=== PATIENT | female | born 1990 | race Caucasian/White ===

== ENCOUNTER → 2018-04-04 | Outpatient (REF) | payer BC | LOC: M LAB REF 16:18 | DX: K50.118 Crohn's disease of large intestine with other complication (principal); D50.9 Iron deficiency anemia, unspecified | CPT/HCPCS: 86140 ==

== ENCOUNTER 2018-05-14 12:15 | Emergency (ER) | payer BC ==
[2018-05-14] MEDS: NS 1,000 ML IV (13:30)
[2018-05-14] MEDS: GASTROGRAFIN SOLUTION 30ML PO ×2 (13:45→14:15)
[2018-05-14 13:52] LABS: BASO % 0.3 % (0.0-1.0); EOS # 0.1 10^3/uL (0.0-0.50); EOS % 0.5 % (0.0-3.0); HEMATOCRIT 38.9 % (36.0-47.0); HEMOGLOBIN 12.8 g/dl (12.0-15.5); IMMATURE GRANULOCYTE % 0.5 % (0-3.0); LYMPH # 1.5 10^3/uL (1.5-6.5); LYMPH % 15.4 % (24.0-44.0); MEAN CORPUSCULAR HEMOGLOBIN 28.3 pg (27.0-33.0); MEAN CORPUSCULAR HGB CONC 32.9 g/dl (32.0-36.5); MEAN CORPUSCULAR VOLUME 85.9 fl (80.0-96.0); MONO # 1.1 10^3/uL (0.0-0.8); MONO % 11.7 % (0.0-5.0); NEUTROPHILS # 6.9 10^3/uL (1.8-7.7); NEUTROPHILS % 71.6 % (36.0-66.0); PLATELET COUNT, AUTOMATED 235 10^3/uL (150-450); RED BLOOD COUNT 4.53 10^6/uL (4.00-5.40); RED CELL DISTRIBUTION WIDTH 12.2 % (11.5-14.5); WHITE BLOOD COUNT 9.6 10^3/uL (4.0-10.0)
[2018-05-14 13:56] LABS: KETONE, URINE AUTO RFX TRACE mg/dL (NEGATIVE); LEUKOCYTE ESTERASE UR AUTO RFX NEGATIVE (NEGATIVE); MUCUS, URINE RFX SMALL (NEGATIVE); NITRITE, URINE AUTO RFX NEGATIVE (NEGATIVE); RBC, URINE AUTO RFX 4 /HPF (0-3); SPECIFIC GRAVITY UR AUTO RFX 1.026 (1.002-1.035); SQUAM EPITHELIAL CELL UR AURFX 6 /HPF (0-6); WBC, URINE AUTO RFX 5 /HPF (0-3)
[2018-05-14 14:27] LABS: ALBUMIN 3.3 GM/DL (3.2-5.2); ALBUMIN/GLOBULIN RATIO 0.85 (1.00-1.93); ALKALINE PHOSPHATASE 51 U/L (45-117); ALT/SGPT 13 U/L (12-78); AMYLASE 36 U/L (25-115); ANION GAP 9 MEQ/L (8-16); AST/SGOT 10 U/L (7-37); BILIRUBIN,DIRECT 0.2 MG/DL (0.0-0.2); BILIRUBIN,TOTAL 0.7 MG/DL (0.2-1.0); BLOOD UREA NITROGEN 10 MG/DL (7-18); CALCIUM LEVEL 8.8 MG/DL (8.5-10.1); CARBON DIOXIDE LEVEL 28 MEQ/L (21-32); CHLORIDE LEVEL 102 MEQ/L (98-107); CREATININE FOR GFR 0.63 MG/DL (0.55-1.30); GLOMERULAR FILTRATION RATE > 60.0 (>60); GLUCOSE, FASTING 83 MG/DL (70-100); LIPASE 87 U/L (73-393); POTASSIUM SERUM 3.5 MEQ/L (3.5-5.1); SODIUM LEVEL 139 MEQ/L (136-145); TOTAL PROTEIN 7.2 GM/DL (6.4-8.2)
[2018-05-14] MEDS ORDERED: ISOVUE-370 76% 100ML VIAL (Q9967) As Ordered (14:58)
[2018-05-14] MEDS: MORPHINE 4 MG/ML 1ML VIAL/SYRINGE (J2270) IV (16:15)
[2018-05-14] MEDS: CIPROFLOXACIN 500 MG TAB PO (17:29)
[2018-05-14] MEDS: metroNIDAZOLE (FLAGYL) 500 MG TAB PO (17:30)
[2018-05-14] MEDS: ACETAMINOPHEN 325 MG TAB PO (17:30)
== END 2018-05-14 17:30 | disposition home or self-care (01) ==
LOC: M ED 12:15
DX: K52.9 Noninfective gastroenteritis and colitis, unspecified (principal); D27.1 Benign neoplasm of left ovary; M54.5 Low back pain; D64.9 Anemia, unspecified; Z98.84 Bariatric surgery status; Z88.8 Allergy status to other drugs, medicaments and biological substances; Z91.018 Allergy to other foods; Z79.899 Other long term (current) drug therapy
CPT/HCPCS: J2270

== ENCOUNTER → 2018-05-16 | Outpatient (REF) | payer BC | LOC: M LAB REF 14:38 | DX: K50.10 Crohn's disease of large intestine without complications (principal); R19.7 Diarrhea, unspecified | CPT/HCPCS: 87493 ==

== ENCOUNTER → 2018-09-03 | Outpatient (REF) | payer BC ==
[~2018-09-03] MED LIST: ALBU17IN2 INH; BIOT10008 PO; CIPR-249 PO; COLA100C5 PO; EPIP0.3I2 SC; FERR1TAB8 PO; FLAG500T PO; HUMI40KI2 SC; IMOD2TAB16 PO; NORCOTAB PO; OMEP20CA3 PO; PERC5TAB12 PO; PRED20TAB PO; VITA10002 PO; VITA100066 PO; VITA50005 PO; VITMTA PO; [UNRECOGNIZED DRUG - OTHER]
[2018-09-03 14:17] LABS: CA 125 7.8 U/ML (<30.2); CA19-9 TUMOR MARKER,CARBOHYDRA 7.7 U/ML (<35.0)
== END ==
LOC: M LAB REF 12:27
PROVIDERS: ATTEND Nurse Practitioner Adult Health
DX: D39.12 Neoplasm of uncertain behavior of left ovary (principal)

== ENCOUNTER 2018-09-19 10:47 | Day surgery (SDC) | payer BC ==
[~2018-09-19] VITALS: Ht 167.6 cm; Wt 102.1 kg
[~2018-09-19 10:47] MED LIST changes: +LIDOCAINE 2% INJ 100 MG/5 ML SDV (FOR ANES.) As Ordered ONE; +LR 1,000 ML IV ONE; +OMEP20TA PO; +PROPOFOL 200 MG/20 ML VIAL As Ordered ONE; +ROCURONIUM BROMIDE 50 MG/5 ML VIAL As Ordered ONE; -[UNRECOGNIZED DRUG - OTHER]; +[UNRECOGNIZED DRUG - OTHER] PR
[2018-09-19] MEDS ORDERED: MIDAZOLAM INJ 2 MG/2 ML VIAL (J2250) As Ordered ONE (10:54)
[2018-09-19] MEDS ORDERED: fentaNYL 100 MCG/2 ML INJECTION (J3010) As Ordered ONE ×2 (10:55→14:41)
[2018-09-19] MEDS ORDERED: dexameTHASONE 4 MG/ML 1ML VIAL (J1100) As Ordered ONE (10:56)
[2018-09-19] MEDS ORDERED: ONDANSETRON 4MG/2ML VIAL (J2405) As Ordered ONE (10:57)
[2018-09-19 11:42] LABS: URINE PREG TEST NEGATIVE (NEGATIVE)
[2018-09-19] MEDS ORDERED: NEOSTIGMINE 10 MG/10 ML VIAL (J2710) As Ordered ONE (15:02)
[2018-09-19] MEDS ORDERED: GLYCOPYRROLATE INJ 0.2 MG/ML 2 ML VIAL As Ordered ONE (15:02)
[2018-09-19] MEDS ORDERED: NORCO, ANEXSIA 5/325MG TABLET (HYDROcodone/ACETAMINOPHEN) PO PRN (15:30)
[2018-09-19] MEDS ORDERED: LR 1,000 ML IV SCH (15:30)
[2018-09-19] MEDS ORDERED: MORPHINE 10 MG/ML 1ML VIAL (J2270) IV PRN (15:30)
[2018-09-19] MEDS ORDERED: ONDANSETRON 4MG/2ML VIAL (J2405) IV PRN (15:30)
[2018-09-19] MEDS ORDERED: PERCOCET 5MG/325MG TAB PO PRN (15:30)
[2018-09-19] MEDS ORDERED: fentaNYL 100 MCG/2 ML INJECTION (J3010) IV PRN (15:30)
[2018-09-19 16:45] VITALS: BP 130/75
--- NOTE | 2018-09-19 17:10 | RO ---
DATE OF PROCEDURE: 09/19/2018 PREOPERATIVE DIAGNOSES: Large left ovarian cyst and pain. POSTOPERATIVE DIAGNOSES: Normal pelvis. OPERATIVE PROCEDURE: Diagnostic laparoscopy. SURGEON: Jocelyn Huizar MD COPY LATHE TENDER: ANESTHESIA: General endotracheal anesthesia. BRIEF DESCRIPTION OF PROCEDURE AND FINDINGS: Amber was brought to the operating room where sufficient general endotracheal anesthesia was induced. She was prepped, draped and positioned in the usual sterile fashion with the bladder emptied. The cervix was grasped with a single tooth tenaculum, sound to 8 cm and the uterine manipulator placed. Attention was then turned to the abdomen where a transverse semilunar incision was made below the umbilicus. Sharp and blunt dissection were continued through the subcutaneous tissue to the level of the rectus fascia. Transverse incision was made and #0 Vicryl retention sutures placed in the fascia. The peritoneum was carefully dissected and entered under direct visualization and the Howard cannula placed and secured in place with #0 Vicryl retention sutures and CO2 inflation was then begun. After adequate CO2 insufflation the peritoneal cavity was visualized. There were normal shiny peritoneal surfaces throughout. There were no excrescences, ascites nor exudate and there did not appear to be tremendous adhesions from the patient's previous gastric bypass. In fact, upper abdominal survey showed reassuring findings as did lower abdominal. With Trendelenburg, we were able to visualize a normal appendix. We were able to see the absence of any significant adhesions. There was one filmy adhesion on the right side that we took down with the cold scissors but really no appreciable lesions. The uterus was elevated with the uterine manipulator and symmetric. Normal sized ovaries were seen. We did not see any significant paratubal cysts. The tubes were normal bilaterally. The pelvis did not show any signs of endometriosis despite a careful survey. We did check the texture of both ovaries. They were symmetric, seemed the same. I did because of the preoperative ultrasound and having the tool there, we went ahead and did place a small needle into the left ovary just to see if there was a deep cyst and there was no cyst fluid there because as consistent with its operative appearance there did not appear to be any cyst present. Again, the ovaries are symmetric in appearance, about 6 cm each, they are egg shaped, same texture on both. I did take a picture with the carissa in place next to the ovary just for size indication and that grasper opened a few centimeters so that should help with that estimation. Really, were not any significant findings in the pelvis. There were not any significant findings in the upper abdomen other than a little bit of scarring, very minimal, from her gastric bypass, so consistent with what is expected. The procedure was then ended with the CO2 allowed to escape the abdomen. The instruments removed and the wound closed with #0 Vicryl retention sutures and actually the ovaries based on that size measurement are a little bit less than 6 cm. Dry sterile dressing was applied after the fascial wound was closed with #0 Vicryl retention suture and the skin closed with #3-0 Vicryl in a subcuticular stitch and a dry sterile dressing then applied. Looking back on the pictures, I can see that the ovaries closer to 4.5 cm in its longer dimension rather than my previous estimate, but again, there are pictures to document all that, and again, normal size either way. Of course, the manipulator and "not clear" were all removed as well with the procedure ended. ESTIMATED BLOOD LOSS: About 5 mL FLUID REPLACEMENT: Crystalloid. COMPLICATIONS: None. CONDITION AND DISPOSITION: Amber tolerated the procedure well and was recovering in the recovery room in good condition.
== END 2018-09-19 16:59 | disposition home or self-care (01) ==
LOC: M SDC 10:47
PROVIDERS: ATTEND Obstetrics & Gynecology
DX: R10.2 Pelvic and perineal pain (principal); K21.9 Gastro-esophageal reflux disease without esophagitis; K50.90 Crohn's disease, unspecified, without complications; D64.9 Anemia, unspecified; Z79.899 Other long term (current) drug therapy; Z88.2 Allergy status to sulfonamides; Z98.84 Bariatric surgery status
CPT/HCPCS: 49320; 84703; J1100; J2250; J2405; J2710; J3010

== ENCOUNTER → 2019-05-06 | Outpatient (REF) | payer BC ==
[~2019-05-06] MED LIST changes: +CYAN100049 PO; +HYDR-3715 PO; -LIDOCAINE 2% INJ 100 MG/5 ML SDV (FOR ANES.) As Ordered ONE; -LR 1,000 ML IV ONE; -NORCOTAB PO; +OMEP-358 PO; -OMEP20CA3 PO; +OMEP20CA4 PO; -OMEP20TA PO; -PROPOFOL 200 MG/20 ML VIAL As Ordered ONE; +PROV108A INH; -ROCURONIUM BROMIDE 50 MG/5 ML VIAL As Ordered ONE; -VITA10002 PO
[2019-05-06 18:38] LABS: C REACTIVE PROTEIN QUANTITATIV < 0.30 MG/DL (0.00-0.30); FERRITIN 17 NG/ML (8-252); IRON (FE) 71 UG/DL (50-170); PERCENT SATURATION 23.1 % (13.2-45.0); TOTAL IRON BINDING CAPACITY 308 UG/DL (250-450)
== END ==
LOC: M LAB REF 16:40
PROVIDERS: ATTEND Internal Medicine
DX: K50.112 Crohn's disease of large intestine with intestinal obstruction (principal)

== ENCOUNTER → 2019-11-12 | Outpatient (CLI) | payer BC ==
[~2019-11-12] MED LIST changes: +OMEP1CAP73 PO; -OMEP20CA4 PO
[2019-11-12 12:44] LABS: HEMATOCRIT 39.4 % (36.0-47.0); HEMOGLOBIN 13.2 g/dl (12.0-15.5); MEAN CORPUSCULAR HEMOGLOBIN 29.8 pg (27.0-33.0); MEAN CORPUSCULAR HGB CONC 33.5 g/dl (32.0-36.5); MEAN CORPUSCULAR VOLUME 88.9 fl (80.0-96.0); PLATELET COUNT, AUTOMATED 176 10^3/uL (150-450); RED BLOOD COUNT 4.43 10^6/uL (4.00-5.40); WHITE BLOOD COUNT 4.5 10^3/uL (4.0-10.0)
[2019-11-12 12:47] LABS: ALBUMIN 3.6 GM/DL (3.2-5.2); ALT/SGPT 21 U/L (12-78); BILIRUBIN,TOTAL 0.5 MG/DL (0.2-1.0); BLOOD UREA NITROGEN 16 MG/DL (7-18); C REACTIVE PROTEIN QUANTITATIV < 0.30 MG/DL (0.00-0.30); CARBON DIOXIDE LEVEL 27 MEQ/L (21-32); CHLORIDE LEVEL 106 MEQ/L (98-107); CREATININE FOR GFR 0.77 MG/DL (0.55-1.30); GLOMERULAR FILTRATION RATE > 60.0 (>60); GLUCOSE, FASTING 86 MG/DL (70-100); IRON (FE) 81 UG/DL (50-170); POTASSIUM SERUM 4.1 MEQ/L (3.5-5.1); SODIUM LEVEL 141 MEQ/L (136-145); TOTAL PROTEIN 6.9 GM/DL (6.4-8.2)
[2019-11-12 13:05] LABS: ERYTHROCYTE SEDIMENTATION RATE 8 mm/hr (0-20)
== END ==
LOC: M WUC 10:50
DX: K50.112 Crohn's disease of large intestine with intestinal obstruction (principal)

== ENCOUNTER 2019-12-01 19:03 | Inpatient (IN) | payer BC ==
[~2019-12-01] VITALS: Ht 167.6 cm; Wt 81.8 kg
[2019-12-01 19:46] LABS: BASO % 0.4 % (0.0-1.0); EOS % 0.3 % (0.0-3.0); HEMATOCRIT 38.8 % (36.0-47.0); HEMOGLOBIN 13.2 g/dl (12.0-15.5); LYMPH # 1.3 10^3/uL (1.5-5.0); LYMPH % 16.7 % (24.0-44.0); MEAN CORPUSCULAR VOLUME 85.3 fl (80.0-96.0); MONO # 0.5 10^3/uL (0.0-0.8); MONO % 6.4 % (0.0-5.0); NEUTROPHILS % 75.8 % (36.0-66.0); PLATELET COUNT, AUTOMATED 201 10^3/uL (150-450); RED BLOOD COUNT 4.55 10^6/uL (4.00-5.40)
[2019-12-01 19:50] LABS: INR 1.27; PARTIAL THROMBOPLASTIN TIME 24.8 SECONDS (25.0-38.4); PROTHROMBIN TIME 15.6 SECONDS (11.8-14.0)
--- NOTE | 2019-12-01 19:53 | REPVR ---
PROCEDURE INFORMATION: Exam: CT Head Without Contrast Exam date and time: 12/01/2019 7:45 PM Age: 29 years old Clinical indication: Pain; Headache; Additional info: CVA TECHNIQUE: Imaging protocol: Computed tomography of the head without contrast. Radiation optimization: All CT scans at this facility use at least one of these dose optimization techniques: automated exposure control; mA and/or kV adjustment per patient size (includes targeted exams where dose is matched to clinical indication); or iterative reconstruction. COMPARISON: No relevant prior studies available. FINDINGS: Brain: There is no evidence for an acute large vessel territorial infarct, intracranial hemorrhage, mass, mass effect, or herniation. The cortical gyration pattern, basal ganglia, thalami, brainstem, and cerebellum are normal in appearance. Ventricles: Normal. No ventriculomegaly. Bones/joints: Unremarkable. No acute fracture. Sinuses: Visualized sinuses are well-aerated. No air-fluid levels. Mastoid air cells: Visualized mastoid air cells are well-aerated. Soft tissues: Unremarkable. IMPRESSION: No acute intracranial abnormality. Electronically signed by: Wilmar Romero On 12/01/2019 19:52:48 PM
[2019-12-01 19:59] LABS: BLOOD UREA NITROGEN 16 MG/DL (7-18); CALCIUM LEVEL 9.3 MG/DL (8.5-10.1); CARBON DIOXIDE LEVEL 19 MEQ/L (21-32); CHLORIDE LEVEL 113 MEQ/L (98-107); CPK CREATINE PHOSPHOKINASE 180 U/L (26-192); CREATININE FOR GFR 1.08 MG/DL (0.55-1.30); GLOMERULAR FILTRATION RATE > 60.0 (>60); GLUCOSE, FASTING 109 MG/DL (70-100); MB/CK RELATIVE INDEX 0.56 (< OR =4); POTASSIUM SERUM 3.5 MEQ/L (3.5-5.1); SODIUM LEVEL 145 MEQ/L (136-145); TROPONIN I < 0.02 NG/ML (< 0.10)
[2019-12-01] MEDS ORDERED: NS 1,000 ML IV ONE (20:15)
[2019-12-01] MEDS ORDERED: METOCLOPRAMIDE INJ 10MG/2ML VIAL (J2765 PER 1) IV ONE (20:15)
[2019-12-01] MEDS ORDERED: VITAD1000T PO (20:51)
[2019-12-01] MEDS ORDERED: DAILTAB51 PO (20:51)
[2019-12-01] MEDS ORDERED: EPIP0.3I2 INJ (20:51)
[2019-12-01] MEDS ORDERED: BIOT10009 PO (20:51)
[2019-12-01] MEDS ORDERED: ALBUTEROL 90 MCG/ACT 8GM HFA INHALER INH PRN (21:00)
[2019-12-01] MEDS ORDERED: ACETAMINOPHEN TAB 650MG DOSE (2X325MG) PO PRN (21:00)
--- NOTE | 2019-12-01 21:07 | HPEPDOC ---
[facility] Medical History & Physical Date of Admission December 01, 2019 Date of Service: December 01, 2019 Primary Care Physician: Yeny Dolan Attending Physician: Gemma Wilson MD History and Physical CHIEF COMPLAINT: altered mental status, paraesthesias HISTORY OF PRESENT ILLNESS: Amber Barber is a 29-year-old female who presented to the emergency department today after an episode of paresthesias and difficulty word finding. She states she was out with her boyfriend planning. Discussed cough today and then they went for a friend. During the run. She states she developed a headache localized to the frontal region of her head. She states that the headache resolved just prior to completing her run. About 10 minutes after that, she reports feeling numbness all over her body and feeling her upper extremities. Gait not. She states that she could move her lower extremities but did not feel like she couldn't move her arms. She also notes that she was having difficulty with word finding during this time. She did try to take a shower and notes that the symptoms would wax and wane. She has never experienced symptoms like this before. She denies any other neurologic deficits including weakness, facial droop, vision impairment, hearing impairment, or dizziness. PAST MEDICAL HISTORY: 1. Crohn's colitis 2. Iron deficiency anemia 3. GERD PAST SURGICAL HISTORY: 1. Gastric bypass 2013 2. Exploratory lap for ovarian cyst 2018 SOCIAL HISTORY: Uses medical marijuana most nights for abdominal pain related to Crohn's disease. Denies tobacco use. Denies alcohol use. Denies other illicit or IV drug use. FAMILY HISTORY: Father also had a gastric bypass. ALLERGIES: Please see below. REVIEW OF SYSTEMS: CONSTITUTIONAL: Denies fevers, chills, night sweats, fatigue, unexpected change in weight. HEENT: Denies change in vision, change in hearing. CARDIOVASCULAR: Denies chest pain, palpitations, shortness of breath, lightheadedness. RESPIRATORY: Denies dyspnea, cough, wheezing. GASTROINTESTINAL: Endorses nausea and diarrhea. Denies vomiting, abdominal pain, constipation, blood in stool. GENITOURINARY: Denies dysuria, urinary frequency, urinary urgency. SKIN: Denies rash, lesions. MUSCULOSKELETAL: Denies joint pain or muscle aches. NEUROLOGICAL: Positive as noted in HPI. PSYCHIATRIC: Denies change in mood. HOME MEDICATIONS: Please see below. PHYSICAL EXAMINATION: VITAL SIGNS: See below GENERAL: Alert, comfortable, in no acute distress HEENT: Normocephalic, atraumatic, PERRLA, EOMI, sclera anicteric, moist mucous membranes NECK: Supple, trachea midline, no lymphadenopathy, no JVD CARDIOVASCULAR: Regular rate and rhythm, normal S1 and S2. No murmurs, rubs, or gallops RESPIRATORY: Clear to auscultation bilaterally with equal air entry bilaterally. No wheezing, rhonchi, or rales. ABDOMEN: Soft, nontender, nondistended, bowel sounds present, no masses or he patosplenomegaly appreciated EXTREMITIES: No cyanosis or edema. Pulses 2+/4 in bilateral upper and lower extremities SKIN: [place], warm, dry NEUROLOGIC: Alert and oriented 3 to person, place and time. No focal deficits appreciated PSYCHIATRIC: Mood and affect appropriate LABORATORY DATA: See below. IMAGING: - CT Head: No acute intracranial abnormality. MICROBIOLOGY: Please see below. ASSESSMENT: 29-year-old female with a past medical history of Crohn's colitis presents with one-day onset of intermittent paresthesias and altered mental status PLAN: 1. Altered mental status and paresthesias. - possibly secondary to complex migraine vs TIA vs dehydration - CT head negative, MRI and MRA head pending - s/p 1 L IV fluids in the ED, continue gentle IV fluid hydration overnight - Urine tox screen pending, denies illicit substance use other than medical marijuana - hx of Crohn's and gastric bypass, check vitamin B12 level, she does take a supplement 2. Elevated PT/INR. - no know hx, does have easy bruising - unsure if taking an herbal supplement that could contribute - recheck with AM labs 3. Crohn's colitis. - continue home meds, no current abdominal pain - one episode of diarrhea unlikely related to this, monitor for recurrent diarrhea 4. Hx chronic anemia - H/H wnl, continue home iron and B12 supplements DVT prophylaxis: sc lovenox Disposition: admitted for observation and further work up Vital Signs Vital Signs Date Time Temp Pulse Resp B/P (MAP) Pulse Ox O2 Delivery O2 Flow Rate FiO2 12/01/19 20:48 83 98 12/01/19 19:14 98.2 20 113/58 (76) Room Air Laboratory Data Labs 24H Laboratory Tests 2 12/01/19 19:16: Immature Granulocyte % (Auto) 0.4, Neutrophils (%) (Auto) 75.8H, Lymphocytes (%) (Auto) 16.7L, Monocytes (%) (Auto) 6.4H, Eosinophils (%) (Auto) 0.3, Basophils (%) (Auto) 0.4, Neutrophils # (Auto) 6.0, Lymphocytes # (Auto) 1.3L, Monocytes # (Auto) 0.5, Eosinophils # (Auto) 0.0, Basophils # (Auto) 0.0, Nucleated Red Blood Cells % (auto) 0.0, Prothrombin Time 15.6H, Prothromb Time International Ratio 1.27, Activated Partial Thromboplast Time 24.8L, Anion Gap 13, Glomerular Filtration Rate > 60.0, Calcium Level 9.3, Total Creatine Kinase 180, Creatine Kinase MB 1.0, Creatine Kinase MB Relative Index 0.56, Troponin I < 0.02 CBC/BMP Laboratory Tests 12/01/19 19:16 Home Medications Scheduled Adalimumab (Humira Pen) 40 Mg/0.8 Ml Kit, 40 MG SC QWEEK SUNDAY Biotin (Biotin) 1,000 Mcg Tab.chew, 1,000 MCG PO DAILY Cholecalciferol (Vitamin D3) (Vitamin D3) 1,000 Unit Tablet, 1,000 UNITS PO DAILY Cyanocobalamin (Vitamin B-12) (Vitamin B-12) 1,000 Mcg Tab, 1,000 MCG PO DAILY Docusate Sodium (Colace) 100 Mg Cap, 100 MG PO DAILY Ferrous Sulfate (Ferrous Sulfate) 325 Mg Tab, 325 MG PO DAILY Multivitamin (Daily Jessi) 1 Each Tablet, 1 TAB PO DAILY Omeprazole (Omeprazole) 20 Mg Tab, 20 MG PO DAILY Scheduled PRN Albuterol Sulfate (Proventil Hfa) 108 Mcg/Act Aer, 2 PUFF INH Q2HP PRN for S HORTNESS OF BREATH Epinephrine (Epipen 2-Too) 0.3 Mg/0.3 Ml Auto.injct, 0.3 MG INJ ASDIRECTED PRN for allergic reaction Allergies Coded Allergies: Sulfa (Sulfonamide Antibiotics) (Verified Allergy, Severe, anaphylaxsis, 12/01/19) caffeine (Verified Allergy, Severe, from excedrin, 12/01/19) anaphylaxsis mesalamine (Verified Allergy, Severe, 12/01/19) Patient had sob, chest pain, hives, facial/hand/ear swelling on two consecutive days after taking azacol- originally thought to be a reaction to cipro- but this seems far more likely GME ATTESTATION GME ATTESTATION My faculty preceptor for this patient encounter was physically present during the encounter and was fully available. All aspects of the patient interview, examination, medical decision making process, and medical care plan development were reviewed and approved by the faculty preceptor. The faculty preceptor is aware and concurs with the plan as stated in the body of this note and will attest to such by his/her cosignature. ATTENDING NOTE I agree with HPI, PMH, PSurgHx, PFamilyHx, SocialHx above. PHYSICAL EXAMINATION: CONSTITUTIONAL: No acute distress, resting comfortably, AAO x 3 EYES: PERRLA, EOM intact HENT, MOUTH: Normocephalic, atraumatic, moist mucous membranes, NECK: SUPPLE, no JVD, no lymphadenopathy, no carotid bruit CV: Regular rate and rhythm, S1S2 normal, no murmurs/rubs/gallops RESPIRATORY: Clear to auscultation bilaterally, no rales/rhonchi/wheezes GI: BS positive in 4 quadrants, soft, nontender, nondistended, no rebound or guarding, no organomegaly : Deferred MUSCULOSKELETAL: Normal ROM. No cyanosis, clubbing, swelling, joint deformity, extremity edema INTEGUMENTARY: Intact, no rashes, no lesions, no erythema NEUROLOGIC: Cranial Nerves II-XII are intact, no focal deficits PSYCHIATRIC: Mood and affect are normal LABORATORY DATA: Please see below IMAGING: CT head: No acute intracranial abnormality. MRA/MRI pending ASSESSMENT: 29 y/o F admitted for altered mental status r/o TIA vs. complex migraine headache. PLAN: 1. Altered mental status r/o TIA vs. Complex migraine. CT head above. F/u MRI and MRA head, vitamin B12. Started on reglan, IVFs, neurology checks. 2. Iron deficiency anemia. H/H stable. 3. Crohns disease. Stable. 4. DVT px. Enoxaparin daily. BELLA GALO D.O. December 01, 2019 21:07 Gemma Wilson MD December 02, 2019 10:11
[2019-12-01 21:29] LABS: MAGNESIUM LEVEL 2.2 MG/DL (1.8-2.4)
--- NOTE | 2019-12-01 21:52 | REPVR ---
PROCEDURE INFORMATION: Exam: MR Angiogram Head Without Contrast, Arteries Exam date and time: 12/01/2019 9:47 PM Age: 29 years old Clinical indication: Weakness; Patient HX: PT states after she was running she felt like her body was weak, tingling, dizziness, nausea, vomiting, and aphasia that subsided after an hour. PT states no priors; Additional info: CVA TECHNIQUE: Imaging protocol: MR angiogram head without contrast. Exam focused on the arteries. 3D rendering: MIP and/or 3D reconstructed images were created by the technologist. COMPARISON: CT Head without contrast 12/01/2019 7:42 PM FINDINGS: Anterior circulation: Normal flow signal and luminal caliber in the petrous, cavernous and supraclinoid internal carotid arteries. Normal appearance of the anterior cerebral artery branches and middle cerebral artery branches through the MCA trifurcations. No occlusion, high-grade focal stenosis or dissection. No aneurysm. Posterior circulation: Normal distal vertebral arteries, with patent normal caliber basilar artery, and normal superior cerebellar and posterior cerebral arteries. No occlusion, high-grade stenosis or aneurysm. IMPRESSION: Unremarkable MR angiogram of the [place] of [place] and intracranial vertebrobasilar system. Electronically signed by: Oscar Koch On 12/01/2019 21:52:17 PM
--- NOTE | 2019-12-01 21:52 | REPVR ---
PROCEDURE INFORMATION: Exam: MR Head Without Contrast Exam date and time: 12/01/2019 9:47 PM Age: 29 years old Clinical indication: Weakness, facial; Patient HX: PT states after she was running she felt like her body was weak, tingling, dizziness, nausea, vomiting, and aphasia that subsided after an hour. PT states no priors; Additional info: CVA TECHNIQUE: Imaging protocol: MR of the head without contrast. COMPARISON: CT Head without contrast 12/01/2019 7:42 PM FINDINGS: Brain: There is no acute infarct, intracranial hemorrhage, mass effect, or herniation. The cortical gyration pattern, basal ganglia, thalami, brainstem, and cerebellum are normal in appearance. Ventricles: Normal. No ventriculomegaly. Bones/joints: Unremarkable. Soft tissues: Unremarkable. Sinuses: The sinuses are well-aerated. No air-fluid levels. Mastoid air cells: The mastoid air cells are well-aerated. No mastoid effusion. Orbits: Unremarkable. IMPRESSION: Normal MRI brain without contrast. Electronically signed by: Wilmar Romero On 12/01/2019 21:51:42 PM
[2019-12-01] MEDS ORDERED: NS 1,000 ML IV SCH (22:45)
[2019-12-02 01:11] VITALS: BP 120/62
--- NOTE | 2019-12-02 03:08 | REP ---
Clinical: Acute cerebrovascular accident . Comparison: 03/13/2015 . Findings: The mediastinum and cardiac silhouette are stable and within normal limits for portable technique. The lung bryson are clear without acute consolidation, effusion, or pneumothorax. Skeletal structures are intact. Impression: No acute cardiopulmonary process appreciated. Electronically Signed by Ramirez Bush MD 12/02/2019 02:59 A
[2019-12-02 06:00] VITALS: BP 114/62
[2019-12-02 06:20] LABS: HEMATOCRIT 34.2 % (36.0-47.0); HEMOGLOBIN 11.5 g/dl (12.0-15.5); MEAN CORPUSCULAR HEMOGLOBIN 29.7 pg (27.0-33.0); MEAN CORPUSCULAR HGB CONC 33.6 g/dl (32.0-36.5); MEAN CORPUSCULAR VOLUME 88.4 fl (80.0-96.0); PLATELET COUNT, AUTOMATED 145 10^3/uL (150-450); RED BLOOD COUNT 3.87 10^6/uL (4.00-5.40); WHITE BLOOD COUNT 6.2 10^3/uL (4.0-10.0)
[2019-12-02 06:38] LABS: INR 1.26; PROTHROMBIN TIME 15.5 SECONDS (11.8-14.0)
[2019-12-02 06:39] LABS: PARTIAL THROMBOPLASTIN TIME 29.7 SECONDS (25.0-38.4)
[2019-12-02 06:44] LABS: BLOOD UREA NITROGEN 15 MG/DL (7-18); CALCIUM LEVEL 8.3 MG/DL (8.5-10.1); CARBON DIOXIDE LEVEL 23 MEQ/L (21-32); CHLORIDE LEVEL 112 MEQ/L (98-107); GLOMERULAR FILTRATION RATE > 60.0 (>60); GLUCOSE, FASTING 81 MG/DL (70-100); POTASSIUM SERUM 3.6 MEQ/L (3.5-5.1); SODIUM LEVEL 145 MEQ/L (136-145)
--- NOTE | 2019-12-02 08:01 | ECGEPIP ---
[facility] - ED Test Date: 2019-12-01 Pat Name: EUSEBIA COLLIER Department: Room: - Gender: Female Attending Ambulatory Care: SUMMER : 1990 Requested By: FAHAD Mendenhall Order Number: [id number] Reading MD: Sonu Mariee Measurements Intervals [place] Rate: 75 P: 61 VT: 152 QRS: 23 QRSD: 94 T: 28 QT: 405 QTc: 455 Interpretive Statements SINUS RHYTHM SIMILAR TO 09/07/15 Electronically Signed on 12-02-2019 8:01:20 EDT by Sonu Mariee
[2019-12-02] MEDS ORDERED: DOCUSATE SODIUM 100 MG CAP PO SCH (09:00)
[2019-12-02] MEDS ORDERED: VITAMIN D 1,000 INTERNATIONAL UNITS TABLET PO SCH (09:00)
[2019-12-02] MEDS ORDERED: ENOXAPARIN 40MG/0.4ML SYRINGE (J1650 PER 10MG) SC SCH (09:00)
[2019-12-02] MEDS ORDERED: FERROUS SULFATE 325MG TAB PO SCH (09:00)
[2019-12-02] MEDS ORDERED: CYANOCOBALAMIN 500 MCG TAB PO SCH (09:00)
[2019-12-02] MEDS ORDERED: OMEPRAZOLE 20 MG CAP PO SCH (09:00)
[2019-12-02 10:15] LABS: VITAMIN B12 LEVEL 658 PG/ML (247-911)
--- NOTE | 2019-12-02 18:08 | DS.PDOC ---
Discharge Summary General Date of Admission December 01, 2019 at 23:24 Date of Discharge 12/02/2019 Attending Physician: ANIL SOLORZANO MD Discharge Summary PROCEDURES PERFORMED DURING STAY: None ADMITTING DIAGNOSES: 1.TIA DISCHARGE DIAGNOSES: 1. Complex migraine vs. TIA 2. Crohn's colitis 3. Iron deficiency anemia 4. GERD COMPLICATIONS/CHIEF COMPLAINT: Transient Ischemic Attack. HISTORY OF PRESENT ILLNESS: 29-year-old W who presented to the emergency department after an episode of paresthesias and word finding difficulty shortly after a run. She developed a headache localized to the frontal region of her head and it eventually resolved but she developed numbness all over her body and feeling her upper extremities without gait instability and symptoms were waxing and waning, without facial droop, dysarthria, vision impairment, hearing impairment, or dizziness. HOSPITAL COURSE: In the ED, CT was wnl. Her symptoms eventually resolved within 1-2 hours of ED arrival and MRI brain and MRA were wnl. Neurology was consulted from the ED and had recommended the MRI/MRA brain with c/f complex migraines and recommended outpatient neurology follow up. She is now being discharged home with a referral to neurology and PCP follow up. DISCHARGE MEDICATIONS: Please see below. ALLERGIES: Please see below. PHYSICAL EXAMINATION ON DISCHARGE: VITAL SIGNS: Please see below. PHYSICAL EXAMINATION: VITAL SIGNS: See below GENERAL: Alert, comfortable, in no acute distress HEENT: Normocephalic, atraumatic, PERRLA, EOMI, sclera anicteric, moist mucous membranes NECK: Supple, trachea midline, no lymphadenopathy, no JVD CARDIOVASCULAR: RRR, no mrg RESPIRATORY: CTAB. No wheezing, rhonchi, or rales. ABDOMEN: Soft, nontender, nondistended, bowel sounds present, no masses or hepatosplenomegaly appreciated EXTREMITIES: No cyanosis or edema. Pulses 2+ in bilateral upper and lower extremities SKIN: [place], warm, dry NEUROLOGIC: Alert and oriented 3 to person, place and time. No focal deficits appreciated. Normal gait PSYCHIATRIC: Mood and affect appropriate LABORATORY DATA: See below. IMAGING: - CT Head: No acute intracranial abnormality. -MRI brain. Grossly normal scan without pathology -MRA brain: wnl PROGNOSIS: Good ACTIVITY: As tolerated. DIET: regular DISCHARGE PLAN: Home with neurology referral and PCP follow up DISPOSITION: , Self-Care. DISCHARGE INSTRUCTIONS: 1. Home with neurology referral and PCP follow up ITEMS TO FOLLOWUP ON ON OUTPATIENT: 1. Complex migraine vs. unlikely TIA DISCHARGE CONDITION: Stable TIME SPENT ON DISCHARGE: 31 minutes. Vital Signs/I&Os Vital Signs Date Time Temp Pulse Resp B/P (MAP) Pulse Ox O2 Delivery O2 Flow Rate FiO2 12/02/19 06:00 98.3 71 16 114/62 (79) 97 Room Air I&O- Last 24 Hours up to 6 AM 12/02/19 06:00 Intake Total 1250 ml Output Total 300 ml Balance 950 ml Laboratory Data Labs 24H Laboratory Tests 2 12/01/19 19:16: Immature Granulocyte % (Auto) 0.4, Neutrophils (%) (Auto) 75.8H, Lymphocytes (%) (Auto) 16.7L, Monocytes (%) (Auto) 6.4H, Eosinophils (%) (Auto) 0.3, Basophils (%) (Auto) 0.4, Neutrophils # (Auto) 6.0, Lymphocytes # (Auto) 1.3L, Monocytes # (Auto) 0.5, Eosinophils # (Auto) 0.0, Basophils # (Auto) 0.0, Nucleated Red Blood Cells % (auto) 0.0, Prothrombin Time 15.6H, Prothromb Time International Ratio 1.27, Activated Partial Thromboplast Time 24.8L, Anion Gap 13, Glomerular Filtration Rate > 60.0, Calcium Level 9.3, Magnesium Level 2.2, Total Creatine Kinase 180, Creatine Kinase MB 1.0, Creatine Kinase MB Relative Index 0.56, Troponin I < 0.02 12/02/19 05:56: Nucleated Red Blood Cells % (auto) 0.0, Prothrombin Time 15.5H, Prothromb Time International Ratio 1.26, Activated Partial Thromboplast Time 29.7, Anion Gap 10, Glomerular Filtration Rate > 60.0, Calcium Level 8.3L, Vitamin B12 Level 658 CBC/BMP Laboratory Tests 12/01/19 19:16 12/02/19 05:56 Discharge Medications Scheduled Adalimumab (Humira Pen) 40 Mg/0.8 Ml Kit, 40 MG SC QWEEK, (Reported) SUNDAY Biotin (Biotin) 1,000 Mcg Tab.chew, 1,000 MCG PO DAILY, (Reported) Cholecalciferol (Vitamin D3) (Vitamin D3) 1,000 Unit Tablet, 1,000 UNITS PO DAILY, (Reported) Cyanocobalamin (Vitamin B-12) (Vitamin B-12) 1,000 Mcg Tab, 1,000 MCG PO DAILY, (Reported) Docusate Sodium (Colace) 100 Mg Cap, 100 MG PO DAILY, (Reported) Ferrous Sulfate (Ferrous Sulfate) 325 Mg Tab, 325 MG PO DAILY, (Reported) Multivitamin (Daily Jessi) 1 Each Tablet, 1 TAB PO DAILY, (Reported) Omeprazole (Omeprazole) 20 Mg Tab, 20 MG PO DAILY, (Reported) Scheduled PRN Albuterol Sulfate (Proventil Hfa) 108 Mcg/Act Aer, 2 PUFF INH Q2HP PRN for SHORTNESS OF BREATH, (Reported) Epinephrine (Epipen 2-Too) 0.3 Mg/0.3 Ml Auto.injct, 0.3 MG INJ ASDIRECTED PRN for allergic reaction, (Reported) Allergies Coded Allergies: Sulfa (Sulfonamide Antibiotics) (Verified Allergy, Severe, anaphylaxsis, 12/01/19) caffeine (Verified Allergy, Severe, from excedrin, 12/01/19) anaphylaxsis mesalamine (Verified Allergy, Severe, 12/01/19) Patient had sob, chest pain, hives, facial/hand/ear swelling on two consecutive days after taking azacol- originally thought to be a reaction to cipro- but this seems far more likely ANIL SOLORZANO MD December 02, 2019 18:08
== END 2019-12-02 11:37 | disposition home or self-care (01) | DRG 54 ==
LOC: EDBD 19:03 → M ED 19:03 → M ED INP 23:24 → ENRESERV 23:39 → M MSPAV 12-02 01:08
PROVIDERS: ADMIT Internal Medicine; ATTEND Internal Medicine
DX: G43.109 Migraine with aura, not intractable, without status migrainosus (principal); G45.9 Transient cerebral ischemic attack, unspecified; K50.90 Crohn's disease, unspecified, without complications; D50.9 Iron deficiency anemia, unspecified; K21.9 Gastro-esophageal reflux disease without esophagitis; Z79.899 Other long term (current) drug therapy; Z88.2 Allergy status to sulfonamides; Z88.5 Allergy status to narcotic agent

== ENCOUNTER → 2020-03-17 | Outpatient (CLI) | payer OTHER ==
[~2020-03-17] MED LIST changes: +BIOT10009 PO; +D31000TA2 PO; +DAILTAB51 PO; +EPIP0.3I2 INJ
[2020-03-17 18:23] LABS: BASO % 0.4 % (0.0-1.0); EOS % 0.9 % (0.0-3.0); HEMATOCRIT 39.1 % (36.0-47.0); HEMOGLOBIN 13.2 g/dl (12.0-15.5); LYMPH # 1.6 10^3/uL (1.5-5.0); LYMPH % 34.8 % (24.0-44.0); MEAN CORPUSCULAR HEMOGLOBIN 31.1 pg (27.0-33.0); MEAN CORPUSCULAR HGB CONC 33.8 g/dl (32.0-36.5); MONO # 0.4 10^3/uL (0.0-0.8); MONO % 9.1 % (0.0-5.0); NEUTROPHILS # 2.4 10^3/uL (1.5-8.5); NEUTROPHILS % 54.1 % (36.0-66.0); PLATELET COUNT, AUTOMATED 169 10^3/uL (150-450); RED BLOOD COUNT 4.25 10^6/uL (4.00-5.40); WHITE BLOOD COUNT 4.5 10^3/uL (4.0-10.0)
[2020-03-17 18:42] LABS: ALBUMIN 3.7 GM/DL (3.2-5.2); ALT/SGPT 23 U/L (12-78); BILIRUBIN,TOTAL 0.6 MG/DL (0.2-1.0); BLOOD UREA NITROGEN 12 MG/DL (7-18); CALCIUM LEVEL 8.8 MG/DL (8.5-10.1); CARBON DIOXIDE LEVEL 30 MEQ/L (21-32); CHLORIDE LEVEL 108 MEQ/L (98-107); CREATININE FOR GFR 0.75 MG/DL (0.55-1.30); FERRITIN 22 NG/ML (8-252); GLOMERULAR FILTRATION RATE > 60.0 (>60); GLUCOSE, FASTING 62 MG/DL (70-100); IRON (FE) 122 UG/DL (50-170); PERCENT SATURATION 40.1 % (13.2-45.0); SODIUM LEVEL 141 MEQ/L (136-145); TOTAL IRON BINDING CAPACITY 304 UG/DL (250-450); TOTAL PROTEIN 6.8 GM/DL (6.4-8.2)
[2020-03-17 18:46] LABS: ERYTHROCYTE SEDIMENTATION RATE 5 mm/hr (0-20)
[2020-03-17 18:50] LABS: TOTAL 25(OH) VITAMIN D 31.1 NG/ML (30.0-100.0); VITAMIN B12 LEVEL 427 PG/ML (247-911)
== END ==
LOC: M WUC 12:25
PROVIDERS: ATTEND Specialist
DX: K50.112 Crohn's disease of large intestine with intestinal obstruction (principal)

== ENCOUNTER → 2020-08-25 | Outpatient (CLI) | payer OTHER ==
[2020-08-25 16:14] LABS: BASO % 0.5 % (0.0-1.0); EOS % 0.5 % (0.0-3.0); HEMATOCRIT 40.4 % (36.0-47.0); HEMOGLOBIN 13.5 g/dl (12.0-15.5); LYMPH # 1.8 10^3/uL (1.5-5.0); LYMPH % 30.6 % (24.0-44.0); MEAN CORPUSCULAR HEMOGLOBIN 30.3 pg (27.0-33.0); MEAN CORPUSCULAR HGB CONC 33.4 g/dl (32.0-36.5); MEAN CORPUSCULAR VOLUME 90.8 fl (80.0-96.0); MONO # 0.4 10^3/uL (0.0-0.8); MONO % 7.1 % (2.0-8.0); NEUTROPHILS # 3.6 10^3/uL (1.5-8.5); NEUTROPHILS % 60.8 % (36.0-66.0); PLATELET COUNT, AUTOMATED 190 10^3/uL (150-450); RED BLOOD COUNT 4.45 10^6/uL (4.00-5.40); WHITE BLOOD COUNT 5.9 10^3/uL (4.0-10.0)
[2020-08-25 16:39] LABS: ALBUMIN 4.1 GM/DL (3.2-5.2); ALT/SGPT 23 U/L (12-78); BILIRUBIN,TOTAL 0.5 MG/DL (0.2-1.0); BLOOD UREA NITROGEN 16 MG/DL (7-18); CARBON DIOXIDE LEVEL 29 MEQ/L (21-32); CHLORIDE LEVEL 106 MEQ/L (98-107); CREATININE FOR GFR 0.68 MG/DL (0.55-1.30); GLOMERULAR FILTRATION RATE > 60.0 (>60); GLUCOSE, FASTING 100 MG/DL (70-100); IRON (FE) 117 UG/DL (50-170); PERCENT SATURATION 36.1 % (13.2-45.0); POTASSIUM SERUM 3.9 MEQ/L (3.5-5.1); SODIUM LEVEL 141 MEQ/L (136-145); TOTAL IRON BINDING CAPACITY 324 UG/DL (250-450); TOTAL PROTEIN 7.3 GM/DL (6.4-8.2)
[2020-08-25 16:47] LABS: TOTAL 25(OH) VITAMIN D 33.5 NG/ML (30.0-100.0); VITAMIN B12 LEVEL 462 PG/ML (247-911)
[2020-08-25 16:48] LABS: FOLATE > 24.0 NG/ML (>5.4)
[2020-08-25 17:08] LABS: ERYTHROCYTE SEDIMENTATION RATE 6 mm/hr (0-20)
== END ==
LOC: M WUC 15:01
PROVIDERS: ATTEND Specialist
DX: K50.112 Crohn's disease of large intestine with intestinal obstruction (principal)

== ENCOUNTER → 2020-08-25 | Outpatient (CLI) | payer OTHER | LOC: M WUC 14:47 | DX: K50.112 Crohn's disease of large intestine with intestinal obstruction (principal) ==

== ENCOUNTER → 2020-09-13 | Outpatient (CLI) | payer OTHER | LOC: M WUC 14:54 | PROVIDERS: ATTEND Specialist | DX: K50.112 Crohn's disease of large intestine with intestinal obstruction (principal) ==

== ENCOUNTER → 2021-01-28 | Outpatient (CLI) | payer OTHER ==
[2021-01-28 16:17] LABS: BASO % 0.5 % (0.0-1.0); EOS % 0.5 % (0.0-3.0); HEMATOCRIT 39.6 % (36.0-47.0); HEMOGLOBIN 13.8 g/dl (12.0-15.5); LYMPH # 2.5 10^3/uL (1.5-5.0); LYMPH % 44.7 % (24.0-44.0); MEAN CORPUSCULAR HEMOGLOBIN 31.3 pg (27.0-33.0); MEAN CORPUSCULAR HGB CONC 34.8 g/dl (32.0-36.5); MEAN CORPUSCULAR VOLUME 89.8 fl (80.0-96.0); MONO # 0.5 10^3/uL (0.0-0.8); MONO % 8.3 % (2.0-8.0); NEUTROPHILS # 2.5 10^3/uL (1.5-8.5); NEUTROPHILS % 45.6 % (36.0-66.0); PLATELET COUNT, AUTOMATED 165 10^3/uL (150-450); RED BLOOD COUNT 4.41 10^6/uL (4.00-5.40); WHITE BLOOD COUNT 5.6 10^3/uL (4.0-10.0)
[2021-01-28 16:48] LABS: ALT/SGPT 28 U/L (12-78); BILIRUBIN,TOTAL 0.6 MG/DL (0.2-1.0); BLOOD UREA NITROGEN 17 MG/DL (7-18); CALCIUM LEVEL 8.7 MG/DL (8.5-10.1); CARBON DIOXIDE LEVEL 27 MEQ/L (21-32); CHLORIDE LEVEL 109 MEQ/L (98-107); CREATININE FOR GFR 0.69 MG/DL (0.55-1.30); GLOMERULAR FILTRATION RATE > 60.0 (>60); GLUCOSE, FASTING 77 MG/DL (70-100); IRON (FE) 136 UG/DL (50-170); PERCENT SATURATION 43.2 % (13.2-45.0); POTASSIUM SERUM 4.1 MEQ/L (3.5-5.1); SODIUM LEVEL 141 MEQ/L (136-145); TOTAL IRON BINDING CAPACITY 315 UG/DL (250-450); TOTAL PROTEIN 7.3 GM/DL (6.4-8.2)
[2021-01-28 17:08] LABS: ERYTHROCYTE SEDIMENTATION RATE 8 mm/hr (0-20)
== END ==
LOC: M WUC 13:35
PROVIDERS: ATTEND Specialist
DX: K50.112 Crohn's disease of large intestine with intestinal obstruction (principal)

== ENCOUNTER → 2021-06-01 | Outpatient (CLI) | payer OTHER ==
[2021-06-01 16:19] LABS: BASO % 0.4 % (0.0-1.0); EOS # 0.1 10^3/uL (0.0-0.5); EOS % 1.5 % (0.0-3.0); HEMATOCRIT 37.6 % (36.0-47.0); HEMOGLOBIN 12.9 g/dl (12.0-15.5); LYMPH # 2.2 10^3/uL (1.5-5.0); LYMPH % 39.6 % (24.0-44.0); MEAN CORPUSCULAR HEMOGLOBIN 30.9 pg (27.0-33.0); MEAN CORPUSCULAR HGB CONC 34.3 g/dl (32.0-36.5); MONO # 0.4 10^3/uL (0.0-0.8); MONO % 7.3 % (2.0-8.0); NEUTROPHILS # 2.8 10^3/uL (1.5-8.5); NEUTROPHILS % 50.8 % (36.0-66.0); PLATELET COUNT, AUTOMATED 187 10^3/uL (150-450); RED BLOOD COUNT 4.18 10^6/uL (4.00-5.40); WHITE BLOOD COUNT 5.5 10^3/uL (4.0-10.0)
[2021-06-01 16:45] LABS: ALBUMIN 3.7 GM/DL (3.2-5.2); ALT/SGPT 24 U/L (12-78); BILIRUBIN,TOTAL 0.5 MG/DL (0.2-1.0); BLOOD UREA NITROGEN 18 MG/DL (7-18); CALCIUM LEVEL 8.3 MG/DL (8.5-10.1); CARBON DIOXIDE LEVEL 27 MEQ/L (21-32); CHLORIDE LEVEL 107 MEQ/L (98-107); CREATININE FOR GFR 0.62 MG/DL (0.55-1.30); FERRITIN 35 NG/ML (8-252); GLOMERULAR FILTRATION RATE > 60.0 (>60); GLUCOSE, FASTING 84 MG/DL (70-100); IRON (FE) 96 UG/DL (50-170); PERCENT SATURATION 32.7 % (13.2-45.0); POTASSIUM SERUM 4.1 MEQ/L (3.5-5.1); SODIUM LEVEL 139 MEQ/L (136-145); TOTAL IRON BINDING CAPACITY 294 UG/DL (250-450)
[2021-06-01 16:48] LABS: TOTAL 25(OH) VITAMIN D 40.2 NG/ML (30.0-100.0)
[2021-06-01 19:49] LABS: ERYTHROCYTE SEDIMENTATION RATE 9 mm/hr (0-20)
== END ==
LOC: M WUC 13:46
PROVIDERS: ATTEND Specialist
DX: K50.112 Crohn's disease of large intestine with intestinal obstruction (principal)

== ENCOUNTER → 2021-10-28 | Outpatient (CLI) | payer BC, OTHER ==
[~2021-10-28] MED LIST changes: -D31000TA2 PO; +VITA100093 PO
[2021-10-28 16:47] LABS: BASO % 0.2 % (0.0-1.0); EOS # 0.1 10^3/uL (0.0-0.5); EOS % 0.6 % (0.0-3.0); HEMATOCRIT 40.1 % (36.0-47.0); HEMOGLOBIN 13.9 g/dl (12.0-15.5); LYMPH # 2.2 10^3/uL (1.5-5.0); LYMPH % 26.8 % (24.0-44.0); MEAN CORPUSCULAR HEMOGLOBIN 30.8 pg (27.0-33.0); MEAN CORPUSCULAR HGB CONC 34.7 g/dl (32.0-36.5); MEAN CORPUSCULAR VOLUME 88.9 fl (80.0-96.0); MONO # 0.5 10^3/uL (0.0-0.8); MONO % 6.4 % (2.0-8.0); NEUTROPHILS # 5.3 10^3/uL (1.5-8.5); NEUTROPHILS % 65.6 % (36.0-66.0); PLATELET COUNT, AUTOMATED 197 10^3/uL (150-450); RED BLOOD COUNT 4.51 10^6/uL (4.00-5.40); WHITE BLOOD COUNT 8.1 10^3/uL (4.0-10.0)
[2021-10-28 17:20] LABS: ALBUMIN 4.1 GM/DL (3.2-5.2); ALT/SGPT 22 U/L (12-78); BLOOD UREA NITROGEN 18 MG/DL (7-18); CALCIUM LEVEL 9.3 MG/DL (8.5-10.1); CARBON DIOXIDE LEVEL 26 MEQ/L (21-32); CHLORIDE LEVEL 106 MEQ/L (98-107); CREATININE FOR GFR 0.68 MG/DL (0.55-1.30); FERRITIN 24 NG/ML (8-252); GLOMERULAR FILTRATION RATE > 60.0 (>60); GLUCOSE, FASTING 82 MG/DL (70-100); IRON (FE) 207 UG/DL (50-170); PERCENT SATURATION 62.5 % (13.2-45.0); POTASSIUM SERUM 3.8 MEQ/L (3.5-5.1); SODIUM LEVEL 139 MEQ/L (136-145); TOTAL IRON BINDING CAPACITY 331 UG/DL (250-450)
[2021-10-28 19:38] LABS: ERYTHROCYTE SEDIMENTATION RATE 7 mm/hr (0-20)
== END ==
LOC: M WUC 14:35
PROVIDERS: ATTEND Specialist
DX: K50.112 Crohn's disease of large intestine with intestinal obstruction (principal)

== ENCOUNTER → 2021-11-09 | Outpatient (CLI) | payer BC, OTHER | LOC: M WUC 14:40 | PROVIDERS: ATTEND Specialist | DX: K50.10 Crohn's disease of large intestine without complications (principal) ==

== ENCOUNTER → 2022-10-18 | Outpatient (CLI) | payer BC, OTHER ==
[~2022-10-18] MED LIST changes: +ALBU6.7H6 INH; -PROV108A INH
[2022-10-18 19:20] LABS: HEMATOCRIT 41.9 % (36.0-47.0); HEMOGLOBIN 14.1 g/dl (12.0-15.5); MEAN CORPUSCULAR HEMOGLOBIN 30.9 pg (27.0-33.0); MEAN CORPUSCULAR HGB CONC 33.7 g/dl (32.0-36.5); MEAN CORPUSCULAR VOLUME 91.9 fl (80.0-96.0); PLATELET COUNT, AUTOMATED 171 10^3/uL (150-450); RED BLOOD COUNT 4.56 10^6/uL (4.00-5.40); WHITE BLOOD COUNT 5.4 10^3/uL (4.0-10.0)
[2022-10-18 19:29] LABS: ALBUMIN 4.2 G/DL (3.2-5.2); ALKALINE PHOSPHATASE 31 U/L (46-116); ALT/SGPT < 9 U/L (7.0-40); AST/SGOT 15 U/L (<34); BILIRUBIN,TOTAL 0.5 MG/DL (0.3-1.2); BLOOD UREA NITROGEN 12 MG/DL (9-23); C REACTIVE PROTEIN QUANTITATIV < 0.40 MG/DL (<1.0); CALCIUM LEVEL 8.3 MG/DL (8.5-10.1); CARBON DIOXIDE LEVEL 25 MMOL/L (20-31); CHLORIDE LEVEL 107 MMOL/L (98-107); CREATININE FOR GFR 0.63 MG/DL (0.55-1.30); GLOMERULAR FILTRATION RATE > 60.0 (>60); GLUCOSE, FASTING 88 MG/DL (60-100); IRON (FE) 122 UG/DL (50-170); PERCENT SATURATION 40.4 % (13.2-45.0); POTASSIUM SERUM 3.9 MMOL/L (3.5-5.1); SODIUM LEVEL 139 MMOL/L (136-145); TOTAL IRON BINDING CAPACITY 302 UG/DL (250-425)
[2022-10-18 19:31] LABS: ERYTHROCYTE SEDIMENTATION RATE 11 mm/hr (0-20)
[2022-10-18 19:32] LABS: TOTAL 25(OH) VITAMIN D 34.1 NG/ML (20.0-100.0)
== END ==
LOC: M WUC 15:01
PROVIDERS: ATTEND Specialist
DX: K50.10 Crohn's disease of large intestine without complications (principal); K21.9 Gastro-esophageal reflux disease without esophagitis; Z12.11 Encounter for screening for malignant neoplasm of colon

== ENCOUNTER → 2023-06-13 | Outpatient (CLI) | payer OTHER ==
[2023-06-13 14:38] LABS: BASO % 0.4 % (0.0-1.0); EOS # 0.1 10^3/uL (0.0-0.5); EOS % 2.3 % (0.0-3.0); HEMOGLOBIN 14.4 g/dl (12.0-15.5); LYMPH # 2.4 10^3/uL (1.5-5.0); MEAN CORPUSCULAR HEMOGLOBIN 31.2 pg (27.0-33.0); MEAN CORPUSCULAR HGB CONC 35.1 g/dl (32.0-36.5); MEAN CORPUSCULAR VOLUME 88.7 fl (80.0-96.0); MONO # 0.4 10^3/uL (0.0-0.8); MONO % 7.9 % (2.0-8.0); NEUTROPHILS # 2.2 10^3/uL (1.5-8.5); PLATELET COUNT, AUTOMATED 205 10^3/uL (150-450); RED BLOOD COUNT 4.62 10^6/uL (4.00-5.40); WHITE BLOOD COUNT 5.2 10^3/uL (4.0-10.0)
[2023-06-13 14:48] LABS: ERYTHROCYTE SEDIMENTATION RATE 6 mm/hr (0-20)
[2023-06-13 15:04] LABS: C REACTIVE PROTEIN QUANTITATIV < 0.40 MG/DL (<1.0)
[2023-06-13 15:05] LABS: ALBUMIN 3.9 G/DL (3.2-5.2); ALKALINE PHOSPHATASE 29 U/L (46-116); ALT/SGPT 22 U/L (7.0-40); AST/SGOT 20 U/L (<34); BILIRUBIN,TOTAL 0.8 MG/DL (0.3-1.2); BLOOD UREA NITROGEN 13 MG/DL (9-23); CALCIUM LEVEL 8.8 MG/DL (8.5-10.1); CARBON DIOXIDE LEVEL 25 MMOL/L (20-31); CHLORIDE LEVEL 109 MMOL/L (98-107); CREATININE FOR GFR 0.66 MG/DL (0.55-1.30); GLOMERULAR FILTRATION RATE > 60.0 (>60); GLUCOSE, FASTING 81 MG/DL (60-100); IRON (FE) 117 UG/DL (50-170); PERCENT SATURATION 39.5 % (13.2-45.0); POTASSIUM SERUM 3.6 MMOL/L (3.5-5.1); SODIUM LEVEL 141 MMOL/L (136-145); TOTAL IRON BINDING CAPACITY 296 UG/DL (250-425); TOTAL PROTEIN 6.9 G/DL (5.7-8.2)
[2023-06-13 15:09] LABS: FERRITIN 36.5 NG/ML (7.3-270.7)
[2023-06-13 15:10] LABS: TOTAL 25(OH) VITAMIN D 30.4 NG/ML (20.0-100.0)
== END ==
LOC: M WUC 13:10
PROVIDERS: ATTEND Specialist
DX: K50.10 Crohn's disease of large intestine without complications (principal)

== ENCOUNTER → 2024-01-25 | Outpatient (CLI) | payer OTHER ==
[2024-01-25 17:05] LABS: BASO % 0.3 % (0.0-1.0); EOS # 0.1 10^3/uL (0.0-0.5); EOS % 0.8 % (0.0-3.0); HEMATOCRIT 40.8 % (36.0-47.0); HEMOGLOBIN 14.1 g/dl (12.0-15.5); LYMPH # 2.2 10^3/uL (1.5-5.0); LYMPH % 37.3 % (24.0-44.0); MEAN CORPUSCULAR HGB CONC 34.6 g/dl (32.0-36.5); MEAN CORPUSCULAR VOLUME 92.5 fl (80.0-96.0); MONO # 0.5 10^3/uL (0.0-0.8); MONO % 8.3 % (2.0-8.0); NEUTROPHILS # 3.1 10^3/uL (1.5-8.5); NEUTROPHILS % 52.8 % (36.0-66.0); PLATELET COUNT, AUTOMATED 192 10^3/uL (150-450); RED BLOOD COUNT 4.41 10^6/uL (4.00-5.40); WHITE BLOOD COUNT 5.9 10^3/uL (4.0-10.0)
[2024-01-25 17:14] LABS: ERYTHROCYTE SEDIMENTATION RATE 5 mm/hr (0-20)
[2024-01-25 17:32] LABS: C REACTIVE PROTEIN QUANTITATIV < 0.40 MG/DL (<1.0)
[2024-01-25 17:33] LABS: ALKALINE PHOSPHATASE 28 U/L (46-116); ALT/SGPT 15 U/L (7.0-40); AST/SGOT 10 U/L (<34); BILIRUBIN,TOTAL 0.9 MG/DL (0.3-1.2); BLOOD UREA NITROGEN 12 MG/DL (9-23); CARBON DIOXIDE LEVEL 28 MMOL/L (20-31); CHLORIDE LEVEL 108 MMOL/L (98-107); CREATININE FOR GFR 0.66 MG/DL (0.55-1.30); GLOMERULAR FILTRATION RATE > 60.0 (>60); GLUCOSE, FASTING 83 MG/DL (60-100); IRON (FE) 168 UG/DL (50-170); SODIUM LEVEL 141 MMOL/L (136-145); TOTAL 25(OH) VITAMIN D 38.2 NG/ML (20.0-100.0); TOTAL PROTEIN 6.8 G/DL (5.7-8.2)
[2024-01-25 17:34] LABS: VITAMIN B12 LEVEL 835 PG/ML (211-911)
[2024-01-25 17:52] LABS: FOLATE 17.3 NG/ML (>5.4)
== END ==
LOC: M WUC 13:11
PROVIDERS: ATTEND Specialist
DX: K21.9 Gastro-esophageal reflux disease without esophagitis (principal); K50.10 Crohn's disease of large intestine without complications

== ENCOUNTER → 2025-02-25 | Outpatient (CLI) | payer OTHER ==
[2025-02-25 15:14] LABS: PLATELET COUNT, AUTOMATED 188 10^3/uL (150-450)
[2025-02-25 15:43] LABS: ALT/SGPT 19 U/L (7.0-40); AST/SGOT 17 U/L (<34); CALCIUM LEVEL 9.5 MG/DL (8.5-10.1); CARBON DIOXIDE LEVEL 30 MMOL/L (20-31); CHLORIDE LEVEL 105 MMOL/L (98-107); CREATININE FOR GFR 0.79 MG/DL (0.55-1.30); GLOMERULAR FILTRATION RATE > 90.0 (>60); POTASSIUM SERUM 4.2 MMOL/L (3.5-5.1); SODIUM LEVEL 144 MMOL/L (136-145)
== END ==
LOC: M WUC 12:30
PROVIDERS: ATTEND Family Medicine
DX: K50.10 Crohn's disease of large intestine without complications (principal)